=== PATIENT | male | born 1945 | race Caucasian/White ===

== ENCOUNTER 2017-03-26 09:24 | Outpatient (CLI) | payer MEDICARE, BC ==
[2017-03-26 09:56] LABS: Bilirubin Negative (Negative); Blood, Urine Negative (Negative); Clarity CLEAR (Clear); Glucose, Urine (Dipstick) 500 mg/dL (Negative); Leukocyte Negative (Negative); Nitrite Negative (Negative); Protein, Urine (Dipstick) Negative (Neg-Trace); Specific Gravity, Urine 1.016 (1.002-1.036)
[2017-03-26 09:58] LABS: Bacteria/HPF None Seen HPF (None Seen); Hyaline Casts/LPF 0-3 HYALINE CAST LPF (0-3 Hyaline); RBC/HPF 0-3 HPF (0-3); Squamous Epithelial None Seen HPF (0-3); WBC/HPF None Seen HPF (0-3)
[2017-03-26 10:12] LABS: Anion Gap 11 mmol/L (10-20); BUN (Urea Nitrogen) 20 mg/dL (8.4-25.7); Calc. Creatinine Clearance 0 mL/min (70-130); Calcium 9.6 mg/dL (7.8-10.44); Carbon Dioxide 30 mmol/L (23-31); Chloride 101 mmol/L (98-107); Estimated GFR-MDRD 77; Glucose 195 mg/dL (80-115); Potassium 4.5 mmol/L (3.5-5.1); Sodium 137 mmol/L (136-145)
--- NOTE | 2017-03-26 10:56 | ULT ---
ULTRASOUND RETROPERITONEUM COMPLETE: (RENAL) Date: 03/26/17 HISTORY: 69-year-old male with history of calculus of kidney. COMPARISON: Ultrasound of 07/10/14. FINDINGS: Right Kidney: 10.5 x 5 x 5 cm. Left Kidney: 12 x 6.5 x 6 cm. Again noted are multiple tiny hyperechoic foci scattered throughout the bilateral renal parenchyma. I t is uncertain whether these represent segments of blood vessels, tiny angiomyolipomas, or calculi. M ost of them do not appear to be in the collecting systems. There is no hydronephrosis. Tiny 0.8 cm le ft renal cortical cyst is demonstrated on one of the images. There are a few tiny left renal cortical cysts, at least two. Bilateral renal parenchyma is thin, age-related. Overall general appearance of the kidneys is similar to 2015. Pre-void urinary bladder volume is 125 mL. Post-void urinary bladder volume is approximately 5 mL. No gross abnormality of the bladder is identified. IMPRESSION: 1. No hydronephrosis. 2. A few tiny left renal cortical cysts. 3. Nonspecific tiny echogenic foci in the bilateral renal parenchyma. See above comments. RAVINDER Daily POS: T[facility]
--- NOTE | 2017-03-26 11:50 | RAD ---
AP VIEW ABDOMEN: HISTORY: Calculus of kidney. FINDINGS: AP view of the abdomen is obtained on 03/26/17. Comparison is made to previous exam from 09/17/16. Non-urologic calcifications again seen and are stable. Some calcifications is also seen in the prost ate gland which are stable. No definite evidence of calcifications seen along the kidneys or course of the ureters to suggest new calcifications. IMPRESSION: Stable AP view abdomen. No definite evidence of new calcifications seen. A large amount of stool is seen in the colon. POS: RISA
== END 2017-03-26 09:25 | disposition home or self-care (01) ==
LOC: ULT 09:24
PROVIDERS: ATTEND Urology
DX: N40.1 Benign prostatic hyperplasia with lower urinary tract symptoms (principal); N20.0 Calculus of kidney; K59.00 Constipation, unspecified
CPT/HCPCS: 74018; 76770; 80048; 81001; 87086

== ENCOUNTER 2018-04-06 10:53 | Outpatient (CLI) | payer MEDICARE, BC ==
--- NOTE | 2018-04-06 12:31 | RAD ---
KUB: HISTORY: Renal stones. COMPARISON: 03/26/2017 FINDINGS: Anterior view of the abdomen shows a nonspecific, nonobstructed bowel gas pattern. There is a calcif ication projecting over the lower pole of the left kidney, which could represent a small left renal c alcification. No calcifications are projecting over the right kidney. IMPRESSION: Left nephrolithiasis. POS: DANIELLA
--- NOTE | 2018-04-06 14:03 | ULT ---
RENAL ULTRASOUND: Comparison: None. History: Renal calculi. Technique: Multiplanar grayscale and color doppler images were obtained in a renal ultrasound. FINDINGS: There is an 8 mm anechoic cyst in the left kidney. There is mild prominence of the left renal pelvis without caliceal dilatation. No shadowing calculi are seen in the kidneys. The kidneys measure 10.4 and 12.1 cm in length on the right and left respectively. Limited evaluation of the urinary bladder is unremarkable. IMPRESSION: 1. Left renal cyst. 2. Left extrarenal pelvis versus mild left hydronephrosis. POS: DANIELLA
== END 2018-04-06 10:54 | disposition home or self-care (01) ==
LOC: RAD 10:53
PROVIDERS: ATTEND Urology
DX: N40.1 Benign prostatic hyperplasia with lower urinary tract symptoms (principal); N20.0 Calculus of kidney; R35.0 Frequency of micturition; N28.1 Cyst of kidney, acquired
CPT/HCPCS: 36415; 74018; 76770; 80048; 81003; 87086

== ENCOUNTER 2018-04-15 12:13 | Outpatient (CLI) | payer MEDICARE, BC ==
[~2018-04-15 12:13] MED LIST: ISOVUE-370 76%-LOCM 1 ML ONE
--- NOTE | 2018-04-15 14:57 | CT ---
CT OF ABDOMEN AND PELVIS PERFORMED WITH AND WITHOUT CONTRAST ENHANCEMENT: Date: 04/15/18 HISTORY: Renal stones. History of left percutaneous nephrostomy and lithotripsy. COMPARISON: Ultrasound examination of 03/26/17. Also, CT examination of 07/28/12. FINDINGS: The lung bases are clear of infiltrates. The liver, spleen, pancreas, and gallbladder regions appear unremarkable. Right and left adrenal glands, and right and left kidneys are normal in size. Small hypodensities are seen involving the left kidney, too small to characterize, but statistically most likely tiny cysts. Since these were somewhat echogenic on an ultrasound, it is possible they are tiny angiomyolipomas. There are no renal calculi demonstrated. There is no significant periaortic or mesenteric adenopathy. CT of pelvis performed with and without contrast enhancement. Prostate is mildly prominent with calcifications. Bladder region shows no focal abnormality. No signi ficant pelvic lymphadenopathy or mass. Arthritic changes of the spine and hips are noted. IMPRESSION: 1. Minimal colonic diverticulosis. 2. No evidence of renal calculi. Tiny hypodensities involving the left kidney could represent tiny a ngiomyolipomas or tiny cysts. No obstruction of either kidney and no evidence of any suspicious mass. POS: TPC
== END 2018-04-15 12:14 | disposition home or self-care (01) ==
LOC: BICCT 12:13
PROVIDERS: ATTEND Urology
DX: N20.0 Calculus of kidney (principal); K57.30 Diverticulosis of large intestine without perforation or abscess without bleeding; N28.89 Other specified disorders of kidney and ureter
CPT/HCPCS: 74178; Q9966

== ENCOUNTER 2019-04-18 13:17 | Outpatient (CLI) | payer MEDICARE, BC ==
--- NOTE | 2019-04-18 14:24 | ULT ---
RENAL ULTRASOUND HISTORY: History of renal calculus and renal cysts COMPARISON: CT the abdomen and pelvis with contrast dated April 15, 2018 and a renal ultrasound dated April 06, 2018 FINDINGS: Right Kidney: Size: 11.8 x 5.0 x 5.2 cm Abnormality: Normal cortical echotexture. No hydronephrosis. Left Kidney: Size: 11.6 x 5.5 x 5.7 cm Abnormality: There is slight prominence of the left renal collecting system which is stable likely re lated to a small extrarenal pelvis. There is a small 1 cm cyst involving the superior pole of the left kidney. There is an 8 mm cortical calcification involving the superior pole of the left kidney. Urinary bladder: Normal mucosa. Normal bilateral ureteral jets. IMPRESSION: 1. Left renal cyst and small left renal cortex parenchymal calcification. 2. Stable slight prominence of the left renal pelvis likely reflects an extrarenal pelvis. This is be en stable to the comparison exams as above.
--- NOTE | 2019-04-18 14:26 | RAD ---
KUB INDICATION: History of renal stones COMPARISON: CT the abdomen and pelvis dated April 15, 2018 FINDINGS: Bowel gas: Nonspecific but without overt appearance of obstruction. Lung bases: Clear. Additional findings: No suspicious calcification demonstrated. Osseous structures: There is scattered degenerative and osteoarthritic change present. IMPRESSION: 1. No acute abnormality.
== END 2019-04-18 13:18 | disposition home or self-care (01) ==
LOC: SCSULT 13:17
PROVIDERS: ATTEND Urology
DX: N20.0 Calculus of kidney (principal); N28.1 Cyst of kidney, acquired; N28.89 Other specified disorders of kidney and ureter; N40.1 Benign prostatic hyperplasia with lower urinary tract symptoms
CPT/HCPCS: 36415; 74018; 76770; 80048; 81001

== ENCOUNTER 2020-04-18 12:22 | Outpatient (CLI) | payer MEDICARE, BC | END 2020-04-18 12:23 | disposition home or self-care (01) | LOC: BICULT 12:22 | PROVIDERS: ATTEND Urology | DX: N20.0 Calculus of kidney (principal); N28.1 Cyst of kidney, acquired; E11.9 Type 2 diabetes mellitus without complications; N40.1 Benign prostatic hyperplasia with lower urinary tract symptoms; R35.0 Frequency of micturition; Z12.5 Encounter for screening for malignant neoplasm of prostate | CPT/HCPCS: 76770; 80048; 81001; G0103; 36415 ==

== ENCOUNTER 2022-05-26 10:01 | Outpatient (CLI) | payer MEDICARE, BC | END 2022-05-26 10:02 | disposition home or self-care (01) | LOC: ULT 10:01 | PROVIDERS: ATTEND Urology | DX: N20.0 Calculus of kidney (principal); D17.71 Benign lipomatous neoplasm of kidney; N28.1 Cyst of kidney, acquired | CPT/HCPCS: 74018; 76770 ==